=== PATIENT | female | born 1955 | race Two or more races ===

== ENCOUNTER → 2016-11-13 | Outpatient (CLI) | payer MEDICARE, MEDICAID ==
[2016-11-13 13:16] LABS: BUN/Creatinine Ratio 10.1; Calcium 8.9 mg/dL (8.5-10.1); Potassium 4.5 mmol/L (3.5-5.1)
== END | disposition home or self-care (01) ==
LOC: LAB 11:58
PROVIDERS: ATTEND Family Medicine
DX: N18.3 Chronic kidney disease, stage 3 (moderate) (principal); M19.90 Unspecified osteoarthritis, unspecified site
CPT/HCPCS: 36415; 80048

== ENCOUNTER → 2019-01-04 | Outpatient (CLI) | payer MEDICARE, MEDICAID ==
[2019-01-04 10:16] LABS: Basophils # (auto) 0 uL; Basophils % (auto) 0.4 % (0.0-2.0); Eosinophils # (auto) 0.1 uL; Eosinophils % (auto) 1.4 % (0.0-7.0); Hematocrit 45.1 % (36.0-46.0); Hemoglobin 14.8 g/dL (12.2-16.2); Lymphocytes # (auto) 2.1 uL; Lymphocytes % (auto) 28.9 % (10.0-50.0); Mean Corpuscular Hemoglobin 30.6 pg (28.0-32.0); Mean Corpuscular Hgb Conc. 32.9 g/dL (32.0-36.0); Mean Corpuscular Volume 93.3 fL (80.0-100.0); Monocytes # (auto) 0.6 uL; Monocytes % (auto) 8.2 % (0.0-12.0); Neutrophils # (auto) 4.4 uL; Neutrophils % (auto) 61.1 % (37.0-80.0); Nucleated Red Blood Cells % 0.1 %; Platelet Count (auto) 206 10^3/uL (140-450); Red Blood Cells 4.84 10^6/uL (4.0-5.20); Red Cell Distribution Width 14.9 % (11.8-14.3); White Blood Cell 7.2 10^3/uL (4.4-10.8)
[2019-01-04 10:27] LABS: Albumin 3.3 g/dL (3.4-5.0); BUN/Creatinine Ratio 10.2; Calcium 9.5 mg/dL (8.5-10.1); Potassium 3.8 mmol/L (3.5-5.1)
[2019-01-04 10:41] LABS: Bilirubin, Total 0.5 mg/dL (0.2-1.0); Total Protein 7.5 g/dL (6.4-8.2)
== END | disposition home or self-care (01) ==
LOC: LAB 09:35
PROVIDERS: ATTEND Nurse Practitioner
DX: E78.5 Hyperlipidemia, unspecified (principal)
CPT/HCPCS: 36415; 80053; 80061; 84443; 85025

== ENCOUNTER → 2019-04-09 | Outpatient (CLI) | payer MEDICARE, MEDICAID ==
[2019-04-09 09:25] LABS: Basophils # (auto) 0 uL; Basophils % (auto) 0.3 % (0.0-2.0); Eosinophils # (auto) 0.1 uL; Eosinophils % (auto) 1.1 % (0.0-7.0); Hematocrit 46.7 % (36.0-46.0); Hemoglobin 15.4 g/dL (12.2-16.2); Lymphocytes # (auto) 2.2 uL; Lymphocytes % (auto) 28.9 % (10.0-50.0); Mean Corpuscular Hemoglobin 30.4 pg (28.0-32.0); Mean Corpuscular Hgb Conc. 32.9 g/dL (32.0-36.0); Mean Corpuscular Volume 92.6 fL (80.0-100.0); Monocytes # (auto) 0.6 uL; Monocytes % (auto) 7.8 % (0.0-12.0); Neutrophils # (auto) 4.7 uL; Neutrophils % (auto) 61.9 % (37.0-80.0); Nucleated Red Blood Cells % 0.1 %; Platelet Count (auto) 216 10^3/uL (140-450); Red Blood Cells 5.05 10^6/uL (4.0-5.20); Red Cell Distribution Width 14.1 % (11.8-14.3); White Blood Cell 7.6 10^3/uL (4.4-10.8)
[2019-04-09 09:51] LABS: Albumin 3.3 g/dL (3.4-5.0); Calcium 9.9 mg/dL (8.5-10.1); Potassium 4.9 mmol/L (3.5-5.1)
[2019-04-09 09:55] LABS: BUN/Creatinine Ratio 12.7; Bilirubin, Total 0.5 mg/dL (0.2-1.0); Total Protein 7.4 g/dL (6.4-8.2)
== END | disposition home or self-care (01) ==
LOC: LAB 09:07
PROVIDERS: ATTEND Nurse Practitioner
DX: E78.5 Hyperlipidemia, unspecified (principal)
CPT/HCPCS: 36415; 80053; 80061; 85025

== ENCOUNTER → 2019-07-14 | Outpatient (CLI) | payer MEDICARE, MEDICAID ==
[2019-07-14 09:57] LABS: Basophils # (auto) 0 uL; Basophils % (auto) 0.5 % (0.0-2.0); Eosinophils # (auto) 0.1 uL; Eosinophils % (auto) 1.3 % (0.0-7.0); Hematocrit 46.1 % (36.0-46.0); Hemoglobin 15.4 g/dL (12.2-16.2); Lymphocytes # (auto) 1.9 uL; Lymphocytes % (auto) 24.1 % (10.0-50.0); Mean Corpuscular Hemoglobin 31.1 pg (28.0-32.0); Mean Corpuscular Hgb Conc. 33.3 g/dL (32.0-36.0); Mean Corpuscular Volume 93.5 fL (80.0-100.0); Monocytes # (auto) 0.6 uL; Neutrophils # (auto) 5.1 uL; Neutrophils % (auto) 66.1 % (37.0-80.0); Platelet Count (auto) 242 10^3/uL (140-450); Red Blood Cells 4.93 10^6/uL (4.0-5.20); Red Cell Distribution Width 14.5 % (11.8-14.3); White Blood Cell 7.7 10^3/uL (4.4-10.8)
[2019-07-14 10:33] LABS: Potassium 5.2 mmol/L (3.5-5.1)
[2019-07-14 10:45] LABS: Albumin 3.4 g/dL (3.4-5.0); BUN/Creatinine Ratio 12.6; Bilirubin, Total 0.3 mg/dL (0.2-1.0); Total Protein 7.4 g/dL (6.4-8.2)
== END | disposition home or self-care (01) ==
LOC: LAB 09:38
PROVIDERS: ATTEND Nurse Practitioner
DX: E78.5 Hyperlipidemia, unspecified (principal)
CPT/HCPCS: 36415; 80053; 80061; 84443; 85025; 86803

== ENCOUNTER → 2020-01-12 | Outpatient (CLI) | payer MEDICARE, MEDICAID ==
[2020-01-12 12:16] LABS: Basophils # (auto) 0 10 ^3/uL (0-0.2); Basophils % (auto) 0.3 % (0.0-2.0); Eosinophils # (auto) 0 10 ^3/uL (0-0.8); Hematocrit 46.1 % (36.0-46.0); Lymphocytes # (auto) 1.9 10 ^3/uL (0.4-5.4); Lymphocytes % (auto) 13.3 % (10.0-50.0); Mean Corpuscular Hemoglobin 29.8 pg (28.0-32.0); Mean Corpuscular Hgb Conc. 32.5 g/dL (32.0-36.0); Mean Corpuscular Volume 91.9 fL (80.0-100.0); Monocytes # (auto) 0.8 10 ^3/uL (0-1.3); Monocytes % (auto) 5.4 % (0.0-12.0); Neutrophils # (auto) 11.7 10 ^3/uL (1.6-8.6); Platelet Count (auto) 260 10^3/uL (140-450); Red Blood Cells 5.02 10^6/uL (4.0-5.20); White Blood Cell 14.4 10^3/uL (4.4-10.8)
[2020-01-12 13:25] LABS: Albumin 3.3 g/dL (3.4-5.0); Calcium 10.2 mg/dL (8.5-10.1); Potassium 4.4 mmol/L (3.5-5.1)
[2020-01-12 13:29] LABS: Bilirubin, Total 0.3 mg/dL (0.2-1.0); Total Protein 7.3 g/dL (6.4-8.2)
== END | disposition home or self-care (01) ==
LOC: LAB 11:55
PROVIDERS: ATTEND Nurse Practitioner
DX: E78.5 Hyperlipidemia, unspecified (principal); R73.9 Hyperglycemia, unspecified; Z00.00 Encounter for general adult medical examination without abnormal findings
CPT/HCPCS: 36415; 80053; 80061; 85025

== ENCOUNTER → 2020-01-20 | Outpatient (CLI) | payer MEDICARE, MEDICAID ==
[2020-01-20 17:32] LABS: Basophils # (auto) 0 10 ^3/uL (0-0.2); Basophils % (auto) 0.4 % (0.0-2.0); Eosinophils # (auto) 0.2 10 ^3/uL (0-0.8); Eosinophils % (auto) 1.5 % (0.0-7.0); Hematocrit 48.1 % (36.0-46.0); Hemoglobin 15.7 g/dL (12.2-16.2); Lymphocytes # (auto) 3.6 10 ^3/uL (0.4-5.4); Lymphocytes % (auto) 32.6 % (10.0-50.0); Mean Corpuscular Hemoglobin 30.2 pg (28.0-32.0); Mean Corpuscular Hgb Conc. 32.7 g/dL (32.0-36.0); Mean Corpuscular Volume 92.2 fL (80.0-100.0); Monocytes # (auto) 1.1 10 ^3/uL (0-1.3); Monocytes % (auto) 9.7 % (0.0-12.0); Neutrophils # (auto) 6.1 10 ^3/uL (1.6-8.6); Neutrophils % (auto) 55.8 % (37.0-80.0); Nucleated Red Blood Cells % 0.1 %; Platelet Count (auto) 261 10^3/uL (140-450); Red Blood Cells 5.21 10^6/uL (4.0-5.20); Red Cell Distribution Width 14.5 % (11.8-14.3)
[2020-01-20 17:39] LABS: Urine Bacteria NONE SEEN /hpf (None Seen); Urine Blood Negative /uL (Negative); Urine Mucus FEW (None Seen); Urine Specific Gravity 1.022 (1.001-1.035); Urine WBC 2 /hpf (0 - 5)
[2020-01-20 18:13] LABS: Albumin 3.4 g/dL (3.4-5.0); Calcium 9.6 mg/dL (8.5-10.1); Potassium 4.3 mmol/L (3.5-5.1)
[2020-01-20 18:17] LABS: BUN/Creatinine Ratio 12.2; Bilirubin, Total 0.3 mg/dL (0.2-1.0); Total Protein 7.6 g/dL (6.4-8.2)
== END | disposition home or self-care (01) ==
LOC: LAB 16:03
PROVIDERS: ATTEND Nurse Practitioner
DX: N39.0 Urinary tract infection, site not specified (principal)
CPT/HCPCS: 36415; 80053; 81001; 85025

== ENCOUNTER → 2020-08-30 | Outpatient (CLI) | payer MEDICARE, MEDICAID ==
[2020-08-30 10:53] LABS: Basophils # (auto) 0 10 ^3/uL (0-0.2); Basophils % (auto) 0.7 % (0.0-2.0); Eosinophils # (auto) 0.2 10 ^3/uL (0-0.8); Hematocrit 43.3 % (36.0-46.0); Hemoglobin 14.8 g/dL (12.2-16.2); Lymphocytes % (auto) 26.9 % (10.0-50.0); Mean Corpuscular Hemoglobin 31.3 pg (28.0-32.0); Mean Corpuscular Hgb Conc. 34.3 g/dL (32.0-36.0); Mean Corpuscular Volume 91.1 fL (80.0-100.0); Monocytes # (auto) 0.6 10 ^3/uL (0-1.3); Monocytes % (auto) 8.3 % (0.0-12.0); Neutrophils # (auto) 4.4 10 ^3/uL (1.6-8.6); Neutrophils % (auto) 61.1 % (37.0-80.0); Nucleated Red Blood Cells % 0.1 %; Platelet Count (auto) 217 10^3/uL (140-450); Red Blood Cells 4.75 10^6/uL (4.0-5.20); Red Cell Distribution Width 13.8 % (11.8-14.3); White Blood Cell 7.3 10^3/uL (4.4-10.8)
[2020-08-30 11:33] LABS: Albumin 3.3 g/dL (3.4-5.0); Potassium 4.6 mmol/L (3.5-5.1)
[2020-08-30 11:41] LABS: BUN/Creatinine Ratio 17.6; Bilirubin, Total 0.4 mg/dL (0.2-1.0); Calcium 9.7 mg/dL (8.5-10.1); Total Protein 7.4 g/dL (6.4-8.2)
== END | disposition home or self-care (01) ==
LOC: LAB 10:20
PROVIDERS: ATTEND Nurse Practitioner
DX: I10 Essential (primary) hypertension (principal); E78.5 Hyperlipidemia, unspecified
CPT/HCPCS: 36415; 80053; 80061; 85025

== ENCOUNTER → 2020-10-12 | Outpatient (CLI) | payer MEDICARE, MEDICAID | END | disposition home or self-care (01) | LOC: LAB 10:16 | PROVIDERS: ATTEND Internal Medicine Pulmonary Disease | DX: Z01.812 Encounter for preprocedural laboratory examination (principal); Z20.822 Contact with and (suspected) exposure to COVID-19 | CPT/HCPCS: 36415; 87426 ==

== ENCOUNTER → 2020-10-13 | Outpatient (CLI) | payer MEDICARE, MEDICAID ==
[~2020-10-13] MED LIST: ALBUTEROL SULF 2.5 MG/0.5ML(0.5%) NEB SOLN ONE
== END | disposition home or self-care (01) ==
LOC: RT 10:27
PROVIDERS: ATTEND Internal Medicine Pulmonary Disease
DX: J98.8 Other specified respiratory disorders (principal); J44.9 Chronic obstructive pulmonary disease, unspecified; Z98.890 Other specified postprocedural states; Z79.899 Other long term (current) drug therapy
CPT/HCPCS: 36600; 82805; 94060

== ENCOUNTER → 2020-11-01 | Outpatient (CLI) | payer MEDICARE, MEDICAID | END | disposition home or self-care (01) | LOC: XYW 11:31 | PROVIDERS: ATTEND Internal Medicine Pulmonary Disease | DX: I34.8 Other nonrheumatic mitral valve disorders (principal); E65 Localized adiposity | CPT/HCPCS: 93306 ==

== ENCOUNTER → 2021-04-10 | Outpatient (CLI) | payer MEDICARE, MEDICAID ==
[2021-04-10 13:48] LABS: Albumin 3.1 g/dL (3.4-5.0); Calcium 9.5 mg/dL (8.5-10.1); Potassium 4.8 mmol/L (3.5-5.1)
[2021-04-10 13:52] LABS: BUN/Creatinine Ratio 16.2; Bilirubin, Total 0.4 mg/dL (0.2-1.0); Total Protein 7.2 g/dL (6.4-8.2)
== END | disposition home or self-care (01) ==
LOC: LAB 13:08
PROVIDERS: ATTEND Nurse Practitioner
DX: I10 Essential (primary) hypertension (principal); E78.5 Hyperlipidemia, unspecified
CPT/HCPCS: 36415; 80053

== ENCOUNTER 2021-08-31 18:27 | Inpatient (IN) | payer MEDICARE, MEDICAID ==
[~2021-08-31] VITALS: Ht 177.8 cm; Wt 130.0 kg
[2021-08-31 19:46] LABS: Basophils # (auto) 0 10 ^3/uL (0-0.2); Basophils % (auto) 0.8 % (0.0-2.0); Eosinophils # (auto) 0 10 ^3/uL (0-0.8); Eosinophils % (auto) 0.4 % (0.0-7.0); Hematocrit 34.5 % (36.0-46.0); Hemoglobin 11.8 g/dL (12.2-16.2); Lymphocytes # (auto) 0.8 10 ^3/uL (0.4-5.4); Mean Corpuscular Hemoglobin 30.5 pg (28.0-32.0); Mean Corpuscular Hgb Conc. 34.2 g/dL (32.0-36.0); Mean Corpuscular Volume 89.3 fL (80.0-100.0); Monocytes # (auto) 0.4 10 ^3/uL (0-1.3); Monocytes % (auto) 10.5 % (0.0-12.0); Neutrophils # (auto) 2.8 10 ^3/uL (1.6-8.6); Neutrophils % (auto) 68.3 % (37.0-80.0); Nucleated Red Blood Cells % 0.1 %; Red Blood Cells 3.87 10^6/uL (4.0-5.20); Red Cell Distribution Width 14.7 % (11.8-14.3); White Blood Cell 4.2 10^3/uL (4.4-10.8)
[2021-08-31 20:01] LABS: Albumin 2.9 g/dL (3.4-5.0); Calcium 9.2 mg/dL (8.5-10.1)
[2021-08-31 20:09] LABS: BUN/Creatinine Ratio 17.4; Bilirubin, Total 0.8 mg/dL (0.2-1.0); Magnesium 2.4 mg/dL (1.6-2.6); Total Protein 6.7 g/dL (6.4-8.2)
[2021-09-01 04:42] LABS: Urine Bacteria FEW /hpf (None Seen); Urine Blood 2+ /uL (Negative); Urine Mucus FEW (None Seen); Urine Specific Gravity 1.019 (1.001-1.035); Urine WBC 680 /hpf (0 - 5); Urine WBC Clumps PRESENT /hpf (None Seen)
[2021-09-01] MEDS ORDERED: cefTRIAXone 1GM/50ML D5W 50 ML IV ONE (10:00)
[2021-09-01] MEDS ORDERED: MORPHINE SULFATE INJECTION 2 MG/ML SYRG IV PRN (18:30)
[2021-09-01] MEDS ORDERED: DOCUSATE SOD 100 MG CAP PO PRN (18:30)
[2021-09-01] MEDS ORDERED: NITROGLYCERIN 0.4 MG SL TAB SL PRN (18:30)
[2021-09-01] MEDS ORDERED: ONDANSETRON HCL 4 MG/2 ML VIAL IV PRN (18:30)
[2021-09-01] MEDS: SODIUM CHLORIDE 0.9% 1,000 ML IV SCH (19:11)
[2021-09-01] MEDS ORDERED: ALBUTEROL SULF HFA 90MCG INH 200DOSE IN SCH (22:00)
[2021-09-01] MEDS: ASCORBIC ACID 500 MG TAB PO SCH (22:00)
[2021-09-01] MEDS: HEPARIN SODIUM (PORCINE) 5000 UNITS/ML 1ML VIAL SC SCH (22:00)
[2021-09-01 23:05] VITALS: BP 145/77
[2021-09-02] MEDS: MORPHINE SULFATE 4 MG/ML SYR/VIAL IV PRN ×2 (00:01→14:41)
[2021-09-02] MEDS ORDERED: CYCL-611 PO (00:17)
[2021-09-02] MEDS ORDERED: LISI-716 PO (00:17)
[2021-09-02] MEDS ORDERED: LOVA20TA4 PO (00:17)
[2021-09-02] MEDS ORDERED: AMIT-256 PO (00:17)
[2021-09-02] MEDS ORDERED: AMLO-489 PO (00:17)
[2021-09-02] MEDS ORDERED: FLUT1AER17 (00:17)
[2021-09-02] MEDS ORDERED: GABA300C10 PO (00:17)
[2021-09-02] MEDS ORDERED: HYDR-4798 (00:17)
[2021-09-02] MEDS ORDERED: ATEN25TA PO (00:17)
[2021-09-02] MEDS: SODIUM CHLORIDE 0.9% 1,000 ML IV SCH ×2 (02:50→11:35)
[2021-09-02 04:59] VITALS: BP 137/63
[2021-09-02] MEDS: HYDROcodone-ACET 5/325MG TAB PO PRN (05:04)
[2021-09-02] MEDS: ACETAMINOPHEN 325 MG TAB PO PRN ×3 (06:50→21:10)
[2021-09-02 07:52] LABS: Basophils # (auto) 0 10 ^3/uL (0-0.2); Basophils % (auto) 0.3 % (0.0-2.0); Eosinophils # (auto) 0 10 ^3/uL (0-0.8); Hematocrit 36.5 % (36.0-46.0); Hemoglobin 12.5 g/dL (12.2-16.2); Lymphocytes # (auto) 0.7 10 ^3/uL (0.4-5.4); Lymphocytes % (auto) 12.3 % (10.0-50.0); Mean Corpuscular Hemoglobin 30.8 pg (28.0-32.0); Mean Corpuscular Hgb Conc. 34.3 g/dL (32.0-36.0); Mean Corpuscular Volume 89.8 fL (80.0-100.0); Monocytes # (auto) 0.5 10 ^3/uL (0-1.3); Monocytes % (auto) 7.8 % (0.0-12.0); Neutrophils # (auto) 4.6 10 ^3/uL (1.6-8.6); Neutrophils % (auto) 79.6 % (37.0-80.0); Nucleated Red Blood Cells % 0.1 %; Red Blood Cells 4.06 10^6/uL (4.0-5.20); Red Cell Distribution Width 14.4 % (11.8-14.3); White Blood Cell 5.8 10^3/uL (4.4-10.8)
[2021-09-02 07:55] LABS: Calcium 8.7 mg/dL (8.5-10.1); Potassium 3.5 mmol/L (3.5-5.1)
[2021-09-02 07:59] LABS: Albumin 2.5 g/dL (3.4-5.0); BUN/Creatinine Ratio 18.2
[2021-09-02 08:12] LABS: Bilirubin, Total 0.9 mg/dL (0.2-1.0); Total Protein 6.4 g/dL (6.4-8.2)
[2021-09-02 08:22] VITALS: BP 140/66
[2021-09-02] MEDS ORDERED: cefTRIAXone 1GM/50ML D5W 50 ML IV SCH (09:00)
[2021-09-02] MEDS: ASCORBIC ACID 500 MG TAB PO SCH ×2 (09:18→22:23)
[2021-09-02] MEDS: ZINC SULFATE 220mg CAP or TAB PO SCH (09:18)
[2021-09-02] MEDS: FAMOTIDINE (10MG/ML) 2ML VL IV SCH (09:19)
[2021-09-02] MEDS: MULTIPLE VITAMIN TAB PO SCH (09:19)
[2021-09-02] MEDS: HEPARIN SODIUM (PORCINE) 5000 UNITS/ML 1ML VIAL SC SCH (10:00)
[2021-09-02 12:50] VITALS: BP_SYST 111; BP_SYST 142; BP_DIAS 58; BP_DIAS 85
[2021-09-02] MEDS: PIPERACILLIN-TAZOB 3.375GM 100 ML IV SCH ×2 (14:40→22:25)
[2021-09-02 16:55] VITALS: BP 163/75
[2021-09-02 20:00] VITALS: BP 145/68
[2021-09-02 21:46] VITALS: BP 145/68
[2021-09-02] MEDS: ENOXAPARIN SOD 100 MG/1 ML SYRINGE SC SCH (22:24)
[2021-09-02] MEDS: ENOXAPARIN SOD 40 MG/0.4 ML SYRINGE SC SCH (22:24)
[2021-09-03 04:20] VITALS: BP 142/66
[2021-09-03] MEDS: PIPERACILLIN-TAZOB 3.375GM 100 ML IV SCH (06:00)
[2021-09-03 08:00] VITALS: BP 145/68
[2021-09-03] MEDS: FAMOTIDINE (10MG/ML) 2ML VL IV SCH (09:40)
[2021-09-03] MEDS: MULTIPLE VITAMIN TAB PO SCH (09:40)
[2021-09-03] MEDS: ZINC SULFATE 220mg CAP or TAB PO SCH (09:40)
[2021-09-03] MEDS: ENOXAPARIN SOD 100 MG/1 ML SYRINGE SC SCH ×2 (09:41→22:09)
[2021-09-03] MEDS: ENOXAPARIN SOD 40 MG/0.4 ML SYRINGE SC SCH ×2 (09:41→22:09)
[2021-09-03] MEDS: ASCORBIC ACID 500 MG TAB PO SCH ×2 (09:41→22:09)
[2021-09-03] MEDS: HYDROcodone-ACET 5/325MG TAB PO PRN (10:24)
[2021-09-03] MEDS ORDERED: cefTRIAXone 1GM/50ML D5W 50 ML IV ONE (12:00)
[2021-09-03] MEDS ORDERED: IOHEXOL 350 MG/ML 100ML IJ ONE (13:34)
[2021-09-03 15:00] VITALS: BP 135/66
[2021-09-03] MEDS: GABAPENTIN 300 MG CAP PO SCH ×2 (17:52→22:12)
[2021-09-03] MEDS: CYCLOBENZAPRINE HCL 10 MG TAB PO SCH ×2 (17:52→22:07)
[2021-09-03] MEDS: CALCIUM CARB 500 MG CHEW TAB PO SCH ×2 (17:53→22:08)
[2021-09-03 20:00] VITALS: BP 158/80
[2021-09-03 22:00] VITALS: BP 158/80
[2021-09-03] MEDS ORDERED: CALCIUM CARB 500 MG CHEW TAB PO SCH (22:00)
[2021-09-03] MEDS: AMITRIPTYLINE HCL 25 MG TAB PO SCH (22:07)
[2021-09-03] MEDS: ATENOLOL 25 MG TAB PO SCH (22:08)
[2021-09-04 05:00] VITALS: BP 146/67
[2021-09-04] MEDS: GABAPENTIN 300 MG CAP PO SCH ×3 (05:49→22:39)
[2021-09-04] MEDS: CYCLOBENZAPRINE HCL 10 MG TAB PO SCH ×3 (05:49→22:38)
[2021-09-04 09:00] VITALS: BP 147/63
[2021-09-04] MEDS: cefTRIAXone 1GM/50ML D5W 50 ML IV SCH (09:00)
[2021-09-04] MEDS: amLODIPine BESYLATE 5 MG TAB PO SCH (10:00)
[2021-09-04] MEDS: ASCORBIC ACID 500 MG TAB PO SCH ×2 (10:00→22:41)
[2021-09-04] MEDS: ZINC SULFATE 220mg CAP or TAB PO SCH (10:00)
[2021-09-04] MEDS: ATENOLOL 25 MG TAB PO SCH ×2 (10:00→22:37)
[2021-09-04] MEDS: ASPirin 81 mg TAB PO SCH (10:00)
[2021-09-04] MEDS: CALCIUM CARB 500 MG CHEW TAB PO SCH ×2 (10:00→22:54)
[2021-09-04] MEDS: LISINOPRIL 10 MG TAB PO SCH (10:00)
[2021-09-04] MEDS: ENOXAPARIN SOD 100 MG/1 ML SYRINGE SC SCH (10:00)
[2021-09-04] MEDS: ENOXAPARIN SOD 40 MG/0.4 ML SYRINGE SC SCH (10:00)
[2021-09-04] MEDS ORDERED: LISINOPRIL 10 MG TAB PO SCH (10:00)
[2021-09-04] MEDS: MULTIPLE VITAMIN TAB PO SCH (10:00)
[2021-09-04 12:56] VITALS: BP 140/55
[2021-09-04 17:09] VITALS: BP 154/70
[2021-09-04 20:00] VITALS: BP 145/68
[2021-09-04 22:00] VITALS: BP 106/70
[2021-09-04] MEDS: AMITRIPTYLINE HCL 25 MG TAB PO SCH (22:29)
[2021-09-04] MEDS: ENOXAPARIN SOD 150 MG/1 ML SYRINGE SC SCH (22:42)
[2021-09-04] MEDS: HYDROcodone-ACET 5/325MG TAB PO PRN (23:07)
[2021-09-05 05:00] VITALS: BP 90/63
[2021-09-05] MEDS: CYCLOBENZAPRINE HCL 10 MG TAB PO SCH ×3 (06:18→21:57)
[2021-09-05] MEDS: GABAPENTIN 300 MG CAP PO SCH ×3 (06:19→21:57)
[2021-09-05 08:00] VITALS: BP 134/71
[2021-09-05 09:00] VITALS: BP 134/71
[2021-09-05] MEDS: cefTRIAXone 1GM/50ML D5W 50 ML IV SCH (09:02)
[2021-09-05] MEDS: ASPirin 81 mg TAB PO SCH (09:03)
[2021-09-05] MEDS: MULTIPLE VITAMIN TAB PO SCH (09:03)
[2021-09-05] MEDS: ZINC SULFATE 220mg CAP or TAB PO SCH (09:03)
[2021-09-05] MEDS: amLODIPine BESYLATE 5 MG TAB PO SCH (09:04)
[2021-09-05] MEDS: ATENOLOL 25 MG TAB PO SCH ×2 (09:04→22:06)
[2021-09-05] MEDS: LISINOPRIL 10 MG TAB PO SCH (09:05)
[2021-09-05] MEDS: ENOXAPARIN SOD 150 MG/1 ML SYRINGE SC SCH (09:05)
[2021-09-05] MEDS: ASCORBIC ACID 500 MG TAB PO SCH ×2 (09:05→21:57)
[2021-09-05] MEDS: CALCIUM CARB 500 MG CHEW TAB PO SCH ×2 (10:00→21:57)
[2021-09-05 13:00] VITALS: BP 123/61
[2021-09-05 17:00] VITALS: BP 125/64
[2021-09-05 21:37] VITALS: BP 114/62
[2021-09-05] MEDS: AMITRIPTYLINE HCL 25 MG TAB PO SCH (21:58)
[2021-09-06 04:35] VITALS: BP 133/51
[2021-09-06] MEDS: GABAPENTIN 300 MG CAP PO SCH (06:01)
[2021-09-06] MEDS: CYCLOBENZAPRINE HCL 10 MG TAB PO SCH (06:01)
[2021-09-06 08:00] VITALS: BP 115/56
[2021-09-06] MEDS: cefTRIAXone 1GM/50ML D5W 50 ML IV SCH (09:30)
[2021-09-06] MEDS: ZINC SULFATE 220mg CAP or TAB PO SCH (09:32)
[2021-09-06] MEDS: MULTIPLE VITAMIN TAB PO SCH (09:32)
[2021-09-06] MEDS: ASCORBIC ACID 500 MG TAB PO SCH (09:32)
[2021-09-06] MEDS: CALCIUM CARB 500 MG CHEW TAB PO SCH (09:32)
[2021-09-06] MEDS: ASPirin 81 mg TAB PO SCH (09:34)
[2021-09-06] MEDS: LISINOPRIL 10 MG TAB PO SCH (09:34)
[2021-09-06] MEDS: ATENOLOL 25 MG TAB PO SCH (09:38)
[2021-09-06] MEDS ORDERED: ENOXAPARIN SOD 40 MG/0.4 ML SYRINGE SC SCH ×2 (10:00)
[2021-09-06] MEDS: amLODIPine BESYLATE 5 MG TAB PO SCH (10:00)
[2021-09-06] MEDS ORDERED: LEVO500T31 PO (11:08)
[2021-09-06 12:00] VITALS: BP 122/56
[2021-09-06 12:11] VITALS: BP 115/56
[2021-09-06 16:00] VITALS: BP 147/111
== END 2021-09-06 19:15 | disposition home health service (06) | DRG 871 ==
LOC: ER 18:27 → EDUNIT# 18:27 → EDBD 18:27 → OVERFLOW 09-01 19:03 → WEST WING 09-01 21:43
PROVIDERS: ADMIT Nurse Practitioner Family; ATTEND Family Medicine
DX: A41.9 Sepsis, unspecified organism (principal); G93.41 Metabolic encephalopathy; E87.1 Hypo-osmolality and hyponatremia; N39.0 Urinary tract infection, site not specified; N17.9 Acute kidney failure, unspecified; J96.11 Chronic respiratory failure with hypoxia; J44.1 Chronic obstructive pulmonary disease with (acute) exacerbation; E88.09 Other disorders of plasma-protein metabolism, not elsewhere classified; S60.221A Contusion of right hand, initial encounter; G89.29 Other chronic pain; I11.0 Hypertensive heart disease with heart failure; E78.5 Hyperlipidemia, unspecified; I50.9 Heart failure, unspecified; F32.A Depression, unspecified; R79.89 Other specified abnormal findings of blood chemistry; S00.81XA Abrasion of other part of head, initial encounter; B95.4 Other streptococcus as the cause of diseases classified elsewhere; Z20.822 Contact with and (suspected) exposure to COVID-19; W01.0XXA Fall on same level from slipping, tripping and stumbling without subsequent striking against object, initial encounter; Y93.01 Activity, walking, marching and hiking; Z95.5 Presence of coronary angioplasty implant and graft; Z99.81 Dependence on supplemental oxygen; I25.2 Old myocardial infarction; Z82.49 Family history of ischemic heart disease and other diseases of the circulatory system; Y92.092 Bedroom in other non-institutional residence as the place of occurrence of the external cause; Y99.8 Other external cause status; M25.559 Pain in unspecified hip
CPT/HCPCS: 36415; 71045; 71275; 78582; 80053; 81001; 83605; 83735; 83880; 84484; 85025; 85379; 87040; 87086; 87177; 87493; 93005; 93970; 96365; 97110; 97530; 99291; G0378; J0696; J2405; J2543; J3490